=== PATIENT | male | born 1975 | race American Indian/Alaskan Native ===

== ENCOUNTER 2017-08-16 10:42 | Emergency (ER) | payer MEDICAID ==
[2017-08-16 11:19] VITALS: BP 109/69
[2017-08-16 11:43] LABS: Basophils % (Auto) 0.7 % (0.0-1.8); Eosinophils % (Auto) 1.8 % (0.0-4.3); Hematocrit 46.4 % (35.5-45.6); Hemoglobin 16.2 gm/dl (11.8-15.2); Mean Corpuscular HGB Conc 35 % (32-34); Mean Corpuscular Hemoglobin 34 pg (28-32); Mean Corpuscular Volume 98 fl (84-94); Platelet Count 221 K/mm3 (140-440); Red Blood Count 4.75 M/mm3 (3.65-5.03); Red Cell Distribution Width 12.7 % (13.2-15.2); White Blood Count 8.4 K/mm3 (4.5-11.0)
[2017-08-16 11:59] LABS: Anion Gap 21 mmol/L; BUN/Creatinine Ratio 8.88; Blood Urea Nitrogen 8 mg/dL (9-20); Calcium 9.4 mg/dL (8.4-10.2); Carbon Dioxide 24 mmol/L (22-30); Chloride 88.2 mmol/L (98-107); Glucose 92 mg/dL (75-100); Potassium 4.7 mmol/L (3.6-5.0); Sodium 128 mmol/L (137-145)
[2017-08-16 18:05] LABS: Urine Drugs of Abuse Note Disclamer
[2017-08-16 18:14] LABS: Bilirubin,Urine NEG (Negative); Blood,Urine NEG (Negative); Ketones,Urine TR mg/dL (Negative); Leukocyte Esterase,Urine NEG (Negative); Nitrite,Urine NEG (Negative); Protein,Urine <15 mg/dL mg/dL (Negative); Urobilinogen,Urine < 2.0 mg/dL (<2.0)
[2017-08-16] MEDS ORDERED: MOTRIN PO ONE (23:31)
== END 2017-08-16 20:00 | disposition left against medical advice (07) ==
LOC: ED 10:42
DX: Z53.21 Procedure and treatment not carried out due to patient leaving prior to being seen by health care provider (principal)
CPT/HCPCS: 36415; 80048; 80307; 81001; 85025; 93005; 93010; G0480; 80320